=== PATIENT | male | born 2000 | race Caucasian/White ===

== ENCOUNTER 2023-08-25 01:00 | Emergency (ER) | payer BC ==
[2023-08-25] MEDS ORDERED: Lidocaine/Epineph/Tetracaine 3 ML Syringe TOP ONE (01:29)
[2023-08-25] MEDS ORDERED: Diphtheria,Pertussis(Acell),Tetanus Vaccine 0.5 ML Syringe IM ONE (01:46)
== END 2023-08-25 03:07 | disposition home or self-care (01) ==
LOC: MW.ED 01:00
DX: S01.01XA Laceration without foreign body of scalp, initial encounter (principal); Z23 Encounter for immunization; Y04.0XXA Assault by unarmed brawl or fight, initial encounter
CPT/HCPCS: 12002; 90471; 90715; 99283; A9270

== ENCOUNTER 2023-09-03 15:44 | Emergency (ER) | payer SELFPAY | END 2023-09-03 17:01 | disposition left against medical advice (07) | LOC: MW.ED 15:44 | DX: Z53.21 Procedure and treatment not carried out due to patient leaving prior to being seen by health care provider (principal) | CPT/HCPCS: 99281 ==